=== PATIENT | female | born 1950 | race Caucasian/White ===

== ENCOUNTER 2024-04-05 09:45 | Inpatient (IN) ==
--- NOTE | 2024-03-17 11:59 | PAT Medication Instructions ---
Medication Instructions Date of Service March 17, 2024 Home Medications Fish And Flax Oil 1 cap PO QAM acetaminophen 500 mg tablet (Tylenol Extra Strength) 500 - 1,000 mg PO UD PRN Pain alprazolam 0.5 mg tablet (Xanax) 0.25 mg PO HS PRN Sleep aspirin 81 mg tablet 81 mg PO QAM atorvastatin 10 mg tablet 10 mg PO QDD biotin 5,000 mcg chewable tablet 5,000 mcg PO QAM ohlixbe-oxcebcxkd-xawr tablet 1 tab PO QAM celecoxib 200 mg capsule (Celebrex) 200 mg PO QAM cholecalciferol (vitamin D3) 50 mcg (2,000 unit) capsule (Vitamin D3) 50 mcg PO UD citalopram 10 mg tablet 10 mg PO QAM coenzyme Q10 100 mg capsule (CoQ-10) 100 mg PO QAM doxylamine succinate 25 mg tablet 12.5 - 25 mg PO HS PRN Sleep glucosamine-chondroitin 250 mg-200 mg tablet (Osteo Bi-Flex) 2 tab PO QAM levothyroxine 75 mcg tablet 75 - 150 mcg PO UD lysine 1,000 mg tablet 1,000 mg PO QAM metoprolol succinate 25 mg tablet,extended release 24 hr 25 mg PO QPM multivitamin with iron 1 tab PO QAM tramadol 50 mg tablet 25 mg PO UD PRN Pain vitamin K2 100 mcg capsule 100 mcg PO QAM ASK your surgeon for instructions celecoxib 200 mg capsule (Celebrex) 200 mg PO QAM ASK your prescriber and surgeon aspirin 81 mg tablet 81 mg PO QAM STOP taking 2 weeks before surgery (or as soon as possible if surgery is within 2 weeks) Fish And Flax Oil 1 cap PO QAM coenzyme Q10 100 mg capsule (CoQ-10) 100 mg PO QAM glucosamine-chondroitin 250 mg-200 mg tablet (Osteo Bi-Flex) 2 tab PO QAM lysine 1,000 mg tablet 1,000 mg PO QAM vitamin K2 100 mcg capsule 100 mcg PO QAM DO NOT take the morning of surgery biotin 5,000 mcg chewable tablet 5,000 mcg PO QAM ksvfztt-imqpdmgqs-vvbq tablet 1 tab PO QAM cholecalciferol (vitamin D3) 50 mcg (2,000 unit) capsule (Vitamin D3) 50 mcg PO UD multivitamin with iron 1 tab PO QAM Take morning of surgery With a small sip of water, OTHERWISE NOTHING TO EAT OR DRINK AFTER MIDNIGHT: acetaminophen 500 mg tablet (Tylenol Extra Strength) 500 - 1,000 mg PO UD PRN Pain (if needed) citalopram 10 mg tablet 10 mg PO QAM levothyroxine tramadol 50 mg tablet 25 mg PO UD PRN Pain (if needed) Take evening before surgery acetaminophen 500 mg tablet (Tylenol Extra Strength) 500 - 1,000 mg PO UD PRN Pain (if needed) alprazolam 0.5 mg tablet (Xanax) 0.25 mg PO HS PRN Sleep (if needed) atorvastatin 10 mg tablet 10 mg PO QDD doxylamine succinate 25 mg tablet 12.5 - 25 mg PO HS PRN Sleep (if needed) metoprolol succinate 25 mg tablet,extended release 24 hr 25 mg PO QPM tramadol 50 mg tablet 25 mg PO UD PRN Pain (if needed) Other Notes If you have any questions please call us at [phone] or [phone] or [phone] or [phone]
--- NOTE | 2024-03-22 12:08 | Anesthesiology Consultation ---
Date of Service March 22, 2024 Assessment & Plan (1) Encounter for pre-operative examination: - Infectious disease screening: Per assessment on 03/22/24: No known recent infectious disease contacts or current infectious disease symptoms. - Cardiology visit (03/15/24): "She has history of PVC's, burden 11% on Metoprolol after monitor from 2020. Echo from 09/23/22 shows 64%.. She appears euvolemic on exam.. exercise capacity > 4 METs. No indication for any additional ischemic workup prior to upcoming surgery.. OK from a cardiac standpoint to hold aspirin.. optimized from a cardiac standpoint to proceed with surgery" - Patient acceptable risk for surgery pending surgeon-ordered PCP preop evaluation (Dr. Kenan Funk/[facility], appt 03/25). Chart Review Chart Review: Patient seen in Pre Admission Testing Teaching & Discussion Pre-Anesthesia Teaching/Discussion Notes: Instructed NPO after midnight before surgery,except medications with 15 cc of water. Medication instructions provided according to the PAT guidelines. History Surgery Operation Date: 04/05/24 07:45 Proposed Procedures p L3-L4 Decompression and Fusion Possible L4-L5 - Feliciano Wolf DO Height/Weight Height: 5 ft 6 in Weight: 61 kg Allergies Allergy/AdvReac Type Severity Reaction Status Date / Time No Known Allergies Allergy Verified 03/11/24 10:05 Medications Home Medications Medication Instructions Recorded Confirmed Last Taken Fish And Flax Oil 1 cap PO QAM 03/11/24 03/11/24 Unknown acetaminophen 500 mg tablet 500 - 1,000 mg PO UD PRN Pain 03/11/24 03/11/24 Unknown (Tylenol Extra Strength) alprazolam 0.5 mg tablet (Xanax) 0.25 mg PO HS PRN Sleep 03/11/24 03/11/24 Unknown aspirin 81 mg tablet 81 mg PO QAM 03/11/24 03/11/24 Unknown atorvastatin 10 mg tablet 10 mg PO QDD 03/11/24 03/11/24 Unknown biotin 5,000 mcg chewable tablet 5,000 mcg PO QAM 03/11/24 03/11/24 Unknown rtqiprv-novinybjw-siib tablet 1 tab PO QAM 03/11/24 03/11/24 Unknown celecoxib 200 mg capsule (Celebrex) 200 mg PO QAM 03/11/24 03/11/24 Unknown cholecalciferol (vitamin D3) 50 50 mcg PO UD 03/11/24 03/11/24 Unknown mcg (2,000 unit) capsule (Vitamin D3) citalopram 10 mg tablet 10 mg PO QAM 03/11/24 03/11/24 Unknown coenzyme Q10 100 mg capsule 100 mg PO QAM 03/11/24 03/11/24 Unknown (CoQ-10) doxylamine succinate 25 mg tablet 12.5 - 25 mg PO HS PRN Sleep 03/11/24 03/11/24 Unknown glucosamine-chondroitin 250 mg-200 2 tab PO QAM 03/11/24 03/11/24 Unknown mg tablet (Osteo Bi-Flex) levothyroxine 75 mcg tablet 75 - 150 mcg PO UD 03/11/24 03/11/24 Unknown lysine 1,000 mg tablet 1,000 mg PO QAM 03/11/24 03/11/24 Unknown metoprolol succinate 25 mg 25 mg PO QPM 03/11/24 03/11/24 Unknown tablet,extended release 24 hr multivitamin with iron 1 tab PO QAM 03/11/24 03/11/24 Unknown tramadol 50 mg tablet 25 mg PO UD PRN Pain 03/11/24 03/11/24 Unknown vitamin K2 100 mcg capsule 100 mcg PO QAM 03/11/24 03/11/24 Unknown Past Medical History Medical History Degenerative scoliosis High platelet count PCP monitoring History of COVID-19 (2019) History of fracture of wrist Right (01/2024) > reduced by ortho and placed in splint, conservative management, progress back to normal activities per 02/2024 [facility] [place] Hyperlipidemia Hypothyroid Mild depression Osteopenia PVCs (premature ventricular contractions) Sleep apnea Previous CPAP, has not used x years Spinal stenosis Spondylolisthesis White coat syndrome without diagnosis of hypertension Exercise / Class Metabolic Activity II 4-5 Yardwork/Stairs/Walk up hill (one FS: No CP, no SOB) Past Surgical History Surgical History History of anesthesia reaction Slow to wake History of x2 History of colonoscopy History of laparoscopic cholecystectomy History of postoperative nausea and vomiting History of tonsillectomy and adenoidectomy Past Anesthesia History No Family Hx of Anesthesia Complications and Other (Slow to wake) History of PONV History of PONV Social History Smoking Status: Never smoker Do You Dip or Chew Tobacco: No Alcohol type: beer alcohol intake frequency: a few times a week Hx Substance Use: No substance use type: does not use Review of Systems Patient denies chest pain, shortness of breath, dyspnea on exertion, fever, chills, cough, wheezing, palpitations. Physical Exam Vital Signs BP 99/62 P 69 TEMP 97.8 SP02 98%RA RESP 16 Physical Full cervical extension range of motion. Full TMJ range of motion. TMD 3 finger breaths Mallampati Score III Dentition: missing side, + several crowns, + implant (right lower side) Lungs: clear throughout to auscultation Cardiac: regular rate and rhythm, no murmurs noted Spine: normal Carotid arteries: negative bruit Extremities: no LE edema Lab Results Anesthesia Preop Results Results Anesthesia Widget: WBC 7.84 K/ul (4.8-10.8) 03/22/24 Hgb 13.5 g/dl (12.0-16.0) 03/22/24 Hct 40.0 % (37.0-47.0) 03/22/24 Plt 446 K/uL (130-400) H 03/22/24 Na 138 mmol/L (136-145) 03/22/24 K 4.1 mmol/L (3.5-5.1) 03/22/24 Cl 105 mmol/L (98-107) 03/22/24 CO2 26 mmol/L (21-32) 03/22/24 BUN 17 mg/dl (6-23) 03/22/24 Creat 0.87 mg/dl (0.6-1.2) 03/22/24 Glucose Level 81 mg/dl (70-99(Fasting)) 03/22/24 PT 10.3 Seconds (9.0-12.0) 03/22/24 PTT 26 Seconds (21-31) 03/22/24 INR 0.9 (0.9-1.1) 03/22/24 Urine Color Yellow 03/22/24 Urine Appearance Clear (Clear) 03/22/24 Urine pH 6.5 (4.5-7.5) 03/22/24 Urine Specific [place] 1.007 (1.000-1.030) 03/22/24 Urine Protein Negative (Negative) 03/22/24 Urine Glucose (UA) Negative (Negative) 03/22/24 Urine Ketones Negative (Negative) 03/22/24 Urine Blood Negative (Negative) 03/22/24 Urine Nitrite Negative (Negative) 03/22/24 Urine Bilirubin Negative (Negative) 03/22/24 Urine Urobilinogen Negative (Negative) 03/22/24 Urine Leukocyte Esterase Negative (Negative) 03/22/24 Blood Type A Positive 03/22/24 Antibody Screen NEGATIVE 03/22/24 Testing Electrocardiogram Date: 03/15/24 SR at 71bpm. NS TWA. Chest X-Ray Date: 03/22/24 FINDINGS: No lines and tubes are seen. The cardiomediastinal silhouette is normal. The lungs are clear. No evidence of pleural effusion or pneumothorax. IMPRESSION: No acute chest disease. Echocardiogram Date: 09/23/22 LVEF 64%. No regional wall motion abnormality. Trace physiologic MR/TR/MD. Stress Test Date: 10/03/22 86% MPHR. No ischemic ST changes. PVC less frequent with stress. PVCs mostly at rest and recovery (ventricular bigeminy at times). 8.6 METS.
[2024-04-05] MEDS ORDERED: ONDANSETRON INJ 2 MG/ML 2 ML VIAL ONE (10:14)
[2024-04-05] MEDS ORDERED: HYDROmorphone INJ 2 MG/ML SYR/VIAL ONE (10:14)
[2024-04-05] MEDS ORDERED: PROPOFOL IV EMULSION 10 MG/ML 20 ML VIAL IV ONE (10:14)
[2024-04-05] MEDS ORDERED: ePHEDrine sulfate 50 MG/ML AMP ONE (10:14)
[2024-04-05] MEDS ORDERED: ROCURONIUM BROMIDE 10 MG/ML 5 ML VIAL IV ONE (10:14)
[2024-04-05] MEDS ORDERED: DEXAMETHASONE SOD INJ 4 MG/ML VIAL ONE (10:14)
[2024-04-05] MEDS ORDERED: PHENYLEPHRINE HCL 10 MG/ML VIAL ONE (10:14)
[2024-04-05] MEDS ORDERED: MIDAZOLAM HCL 1 MG/ML 2ML VIAL ONE (10:14)
[2024-04-05] MEDS ORDERED: LIDOCAINE 2% 2 ML VIAL/AMP(20MG/ML) INFIL ONE (10:14)
[2024-04-05] MEDS: LR 15ML/HR IV SCH (10:38)
[2024-04-05] MEDS: LR 60ML/HR IV SCH (10:39)
[2024-04-05] MEDS: CeleBREX 200 MG CAP PO SCH (10:39)
[2024-04-05] MEDS: ACETAMINOPHEN 500 MG TAB PO SCH (10:39)
[2024-04-05] MEDS: GABAPENTIN 300 MG CAP PO SCH (10:39)
--- NOTE | 2024-04-05 11:14 | History & Physical Bridge Note ---
Date of Service April 05, 2024 History & Physical Bridge Note I have examined the patient, reviewed the History & Physical and in the interval since the performance of the History & Physical I have noted the following changes of clinical significance: no changes noted
--- NOTE | 2024-04-05 11:16 | History & Physical Report ---
Date of Service April 05, 2024 Assessment & Plan (1) Neurogenic claudication due to lumbar spinal stenosis: Plan: L3-L4 decompression and fusion, possible L4-L5 History of Present Illness Chief Complaint: Back and bilateral leg pain Primary Care Provider: Kenan Funk 73-year-old female who presents with chronic persistent back and leg pain after failing course of nonoperative care is here for surgical intervention. Allergies Allergy/AdvReac Type Severity Reaction Status Date / Time No Known Allergies Allergy Verified 04/05/24 10:25 Home Medications Medication Instructions Recorded Confirmed Type Fish And Flax Oil 1 cap PO QAM 03/11/24 04/05/24 History acetaminophen 500 mg tablet 500 - 1,000 mg PO UD PRN Pain 03/11/24 04/05/24 History (Tylenol Extra Strength) alprazolam 0.5 mg tablet (Xanax) 0.25 mg PO HS PRN Sleep 03/11/24 04/05/24 History aspirin 81 mg tablet 81 mg PO QAM 03/11/24 04/05/24 History atorvastatin 10 mg tablet 10 mg PO QDD 03/11/24 04/05/24 History biotin 5,000 mcg chewable tablet 5,000 mcg PO QAM 03/11/24 04/05/24 History xnnnnjl-uzywvojyb-vgtd tablet 1 tab PO QAM 03/11/24 04/05/24 History celecoxib 200 mg capsule (Celebrex) 200 mg PO QAM 03/11/24 04/05/24 History cholecalciferol (vitamin D3) 50 50 mcg PO UD 03/11/24 04/05/24 History mcg (2,000 unit) capsule (Vitamin D3) citalopram 10 mg tablet (Celexa) 10 mg PO QAM 03/11/24 04/05/24 History coenzyme Q10 100 mg capsule 100 mg PO QAM 03/11/24 04/05/24 History (CoQ-10) doxylamine succinate 25 mg tablet 12.5 - 25 mg PO HS PRN Sleep 03/11/24 04/05/24 History (Sleep Aid (doxylamine)) glucosamine-chondroitin 250 mg-200 2 tab PO QAM 03/11/24 04/05/24 History mg tablet (Osteo Bi-Flex) levothyroxine 75 mcg tablet 75 - 150 mcg PO UD 03/11/24 04/05/24 History lysine 1,000 mg tablet 1,000 mg PO QAM 03/11/24 04/05/24 History metoprolol succinate 25 mg 25 mg PO QPM 03/11/24 04/05/24 History tablet,extended release 24 hr multivitamin with iron 1 tab PO QAM 03/11/24 04/05/24 History tramadol 50 mg tablet 25 mg PO UD PRN Pain 03/11/24 04/05/24 History vitamin K2 100 mcg capsule 100 mcg PO QAM 03/11/24 04/05/24 History Past Med/Surg History Problem List (Updated 04/05/24 @ 11:16 by Feliciano Wolf, ) Neurogenic claudication due to lumbar spinal stenosis Encounter for pre-operative examination Medical History Degenerative scoliosis High platelet count PCP monitoring History of COVID-19 (2019) History of fracture of wrist Right (01/2024) > reduced by ortho and placed in splint, conservative management, progress back to normal activities per 02/2024 [facility] ortho visit Hyperlipidemia Hypothyroid Mild depression Osteopenia PVCs (premature ventricular contractions) Sleep apnea Previous CPAP, has not used x years Spinal stenosis Spondylolisthesis White coat syndrome without diagnosis of hypertension Surgical History History of anesthesia reaction Slow to wake History of x2 History of colonoscopy History of laparoscopic cholecystectomy History of postoperative nausea and vomiting History of tonsillectomy and adenoidectomy Social History Smoking Status: Never smoker Do You Dip or Chew Tobacco: No; Hx Substance Use: No Preferred Language: Lithuanian Communication Ability: Effective [employer]techn[employer] Teacher Required: No Beliefs That Will Affect Care: None Current Living Situation: Spouse Feels Safe at Home: Yes Assistive Devices: Glasses and Hearing Aid - Bilateral Physical Exam Physical Exam: Patient is alert and oriented Heart regular in rhythm lungs clear Results & Data Results & Data Vital Signs (Past 12 Hours) Vital Signs Temp Pulse Resp BP Pulse Ox O2 Del Method 04/05/24 10:25 36.8 C 64 18 128/77 98 Room Air
[2024-04-05] MEDS ORDERED: fentaNYL citrate PF 100 MCG/2 ML VIAL IV PRN (11:18)
[2024-04-05] MEDS ORDERED: ONDANSETRON INJ 2 MG/ML 2 ML VIAL IV PRN ×2 (11:18→15:15)
[2024-04-05] MEDS ORDERED: ATROPINE SULFATE 0.1 MG/ML 10ML SYR IV PRN (11:18)
[2024-04-05] MEDS ORDERED: ePHEDrine sulfate 50 MG/ML AMP IV PRN (11:18)
[2024-04-05] MEDS: ceFAZolin 2000MG 2,000 MG/15 ML SYR IV SCH (11:36)
[2024-04-05] MEDS ORDERED: SUGAMMADEX SODIUM 200 MG/2 ML VIAL IV ONE (11:58)
[2024-04-05] MEDS: BUPIVACAINE/EPINEPHRINE 0.25% 1:200,000 30 ML VIAL ONE (12:05)
[2024-04-05] MEDS: FLOSEAL HEMOSTATIC MATRIX 10ML TOP ONE (13:45)
[2024-04-05] MEDS: ceFAZolin 330 MG/ML 1 GM VIAL ONE (13:51)
--- NOTE | 2024-04-05 14:16 | Operative Report ---
Post Operative Report Pre & Post Diagnosis Operation Date: 04/05/24 11:25 Pre-Op Diagnosis: Neurogenic claudication due to lumbar spinal stenosis Post-Op Diagnosis: Neurogenic claudication due to lumbar spinal stenosis I identified the patient and participated in the time-out.: Yes Procedure Operation Date: 04/05/24 11:25 Actual Procedures #1 lumbar decompression with bilateral medial facetectomies and foraminotomies L2-L3, L3-L4 and L4-L5. #2 posterior spinal fusion L3 L5. #3 placement posterior instrumentation L3 L5. #4 interbody fusion L3-L4 L4-L5. #5 placement of Spira 9 x 22 mm at L3-L4 and 11 x 26 mm at L4-5. #6 placement locally harvested morselized autograft in the posterior gutters per #7 placement infuse collagen sponge combined with Koros bone graft in the posterior lateral gutters and os design interbody space. #8 placement of versa wrap on the exposed dura. Surgeon Feliciano Wolf, Creative Engagement Director Yris Talamantes Estimated Blood Loss 150 Findings Consistent with Post-Op Diagnosis Specimens None Indications This is a 73-year-old female who presents above-mentioned diagnosis after failing course of nonoperative care is here for surgical invention. Description of Procedure Patient was met with identified informed consent obtained. Patient was then taken to the operative suite underwent and patient placed in a prone position on the Noel table atop the Byron frame. All bony promises well-padded eyes inspected to ensure no external pressure placed upon them. This point the lumbar spine is prepped and draped in normal sterile fashion. Sharp dissection with the assistance of Bovie cautery was performed down to and exposing the lamina transverse processes of L3-L4-L5 bilaterally. From a caudal cephalad fashion complete laminectomy of L4 was performed including bilateral medial facetectomy foraminotomies addressing severe lateral recess and foraminal stenosis. This was followed by complete laminectomy of L3 with bilateral medial facetectomies and foraminotomies addressing severe stenosis and lastly partial laminectomy of L2 with bilateral medial facetectomies to address all subarticular stenosis. Pedicle screws then placed at L3 L4-5 bilaterally with assistance of fluoroscopy in the process elizabeth placed. By way of transforaminal approach on the left a complete discectomy of L4-L5 was performed endplates guarded to subcortical bleeding bone and 11 x 26 mm Spira cage filled os design tapped in position. Then proceeded to L3-L4 and by way of transforaminal approach on the right complete discectomy performed endplates guarded to subcortical bleeding bone and a 9 x 22 mm spiral cage filled with os design tapped into position. Appropriate size rods were then placed and locked into position bilaterally. The transverse processes of L3 L4-5 burred to subcortical bleeding bone. Infuse collagen sponge combined with Koros and local autograft placed in the posterior lateral gutters. Versa wrap placed on the exposed dura. 15 round STEPHANIE drain inserted. The incision was then closed with 1 Vicryl to fascia 2-0 Vicryl subcutaneously and 4 Monocryl for final skin closure. Steri- Strips sterile dressing placed. Patient waken taken the PACU stable condition. Please note spinal cord monitoring was utilized at the procedure no changes noted. Yris Talamantes was present out the entire procedure and all the patient positioning complex portions of the procedure and final skin closure. Im ordering 20 grams of Triple Weeping Water Collagen Powder ([employer] [id number]) to treat an incision wound that was caused by a spine procedure. The incision is approximately 2 cm(W) x 4 cm(L) into the joint (D) in size and is a full thickness wound. Triple Weeping Water collagen comes in 1 gram packets so 20 packets were ordered. Given the size of the wound, with light to moderate exudate I chose to order a 20 day supply. The patient will be provided instructions for proper application of the collagen wound kit. The patient will be asked to apply the collagen powder daily and then cover it with sterile dressings dispensed. Collagen was selected as I expect the collagen to attract monocytes and fibroblasts, act as a sacrificial substrate for MMPs, and ultimately proved a matrix for tissue and vessel growth. The collagen will act as a primary dress ing in this scenario. It is medically necessary for proper healing of these wounds to improve bioavailability and contact with each wound surface, this is also to help prevent infection of wounds and promote healing ultimately leading to a better healing outcome and limit the risk of infection. I attest to the content of the Intraoperative Record and any orders documented therein. Any exceptions are noted below.
--- NOTE | 2024-04-05 14:41 | Fluoroscopy Report ---
INTRAOPERATIVE RADIOGRAPHS CLINICAL HISTORY: Lumbar spinal fusion surgery. Fluoro time: 31 seconds Ka,r: 16.70 mGy FINDINGS: 2 spot fluoroscopic views of the lumbar spine are presented. There has been discectomy at L 3-L4 and L4-L5 with laminectomy and posterior fusion at L3-L5. Interpedicular screws are present at a ll levels. The orthopedic hardware appears intact. There is minimal anterolisthesis at L3-L4. IMPRESSION: Intraoperative images from lumbar spinal fusion surgery as above. Electronically signed by: Sarabjit Paz M.D. 04/05/2024 2:40 PM
--- NOTE | 2024-04-05 14:48 | Anesthesiology Progress Note ---
Date of Service April 05, 2024 Anesthesia Post Procedure Vital Signs Vital Signs: Temp Pulse Pulse Resp BP BP Pulse Ox 04/05/24 14:40 81 14 116/64 98 04/05/24 14:30 78 14 123/69 100 04/05/24 14:20 75 12 111/72 100 04/05/24 14:14 36 C L 79 16 117/68 99 04/05/24 10:25 36.8 C 64 18 128/77 98 O2 Del Method O2 Flow Rate 04/05/24 14:40 Room Air 04/05/24 14:30 Oxymask 2 04/05/24 14:20 Oxymask 4 04/05/24 14:14 Oxymask 6 04/05/24 10:25 Room Air Transfer of Care Handoff Completed per policy Notes Mental Status: alert / awake / arousable and participated in evaluation Patient Amnestic to Procedure: Yes Nausea / Vomiting: adequately controlled Pain: adequately controlled Airway Patency, RR, SpO2: stable & adequate BP & HR: stable & adequate Hydration State: stable & adequate Anesthetic Complications: no major complications apparent and Pt Satisfied with anesthetic care
[2024-04-05] MEDS ORDERED: NALOXONE HCL 0.4 MG/1 ML VIAL/CARP IV PRN (15:15)
[2024-04-05] MEDS ORDERED: LORazepam 0.5 MG TAB PO PRN (15:15)
[2024-04-05] MEDS ORDERED: PROMETHAZINE 12.5 MG/50.5 ML BAG IV PRN (15:15)
[2024-04-05] MEDS ORDERED: ALUMINUM/MAGNESIUM SUSP 30 ML UDC PO PRN (15:15)
[2024-04-05] MEDS ORDERED: FAMOTIDINE 20 MG TAB PO PRN (15:15)
[2024-04-05] MEDS ORDERED: ALPRAZolam 0.25 MG TABLET PO PRN (15:15)
[2024-04-05] MEDS ORDERED: ONDANSETRON 4 MG OD TAB PO PRN (15:15)
[2024-04-05] MEDS ORDERED: diphenhydrAMINE Capsule 25 MG CAP PO PRN (15:15)
[2024-04-05] MEDS ORDERED: MAGNESIUM HYDROXIDE SUSP 30 ML UDC PO PRN (15:15)
[2024-04-05] MEDS ORDERED: LORazepam 0.5 MG in SYRINGE 0.25 ML IV PRN (15:15)
[2024-04-05] MEDS ORDERED: DO NOT ADMINISTER FLU VACCINE PRN (15:15)
[2024-04-05] MEDS ORDERED: METOCLOPRAMIDE HCL INJ 5 MG/ML 2 ML VIAL IV PRN (15:15)
[2024-04-05] MEDS ORDERED: SOD PHOSPHATE/SOD BIPHOSPHATE ENEMA 132 ML BTL PR PRN (15:15)
[2024-04-05] MEDS ORDERED: DO NOT ADMINISTER PNEUMOCOCCAL VACCINE PRN (15:15)
[2024-04-05] MEDS ORDERED: hydrOXYzine HCl 25 MG TAB PO PRN (15:15)
[2024-04-05] MEDS ORDERED: HYDROmorphone INJ 0.5 MG/0.5 ML SYR IV PRN (15:15)
[2024-04-05] MEDS ORDERED: ACETAMINOPHEN 1,000 MG/100 ML VIAL IV PRN (15:15)
[2024-04-05] MEDS: LACTATED RINGER'S 1,000 ML IV SCH (15:25)
--- NOTE | 2024-04-05 15:44 | Hospitalist Consultation ---
Date of Consultation April 05, 2024 Assessment & Plan (1) Neurogenic claudication due to lumbar spinal stenosis: (2) S/P lumbar spine operation: Plan Kristen Metz is a 73y/o F with PMHx of HTN, hyperlipidemia, hypothyroidism, depression, osteopenia, history of PVCs, DAWOOD on CPAP and other problems listed below who was referred to our [facility]ist Team for post-operative medical management after undergoing L3-L5 decompression and fusion performed by Dr. Wolf on 04/05/24. Neurogenic Claudication 2/2 Lumbar Spinal Stenosis S/P Lumbar Spine Operation POD#0 s/p L3-L5 decompression and fusion with Dr. Wolf. EBL: 150mL & Pre-Op Hgb: 13.5 [03/22/24] Per ortho for pain control, wound care, anticoagulation and activities. Continue incentive spirometry, PT/OT when appropriate as per ortho team. Monitor H/H for acute blood loss anemia and transfuse blood products PRN. HTN: BP has been stable post-operatively. Can continue metoprolol succinate w/ hold parameters, monitor BP. Hyperlipidemia: Continue ASA and atorvastatin. Other Chronic Medical Conditions: Depression, hypothyroidism --> Can continue home meds for these specific conditions. DVT Prophylaxis: SCDs/TEDs as per primary care team. Code Status: FULL CODE PCP: Kenan Funk MD Disposition: Admitted in Med/Surg currently - discharge planning as per primary care team. Thank you for this consultation. We will follow the patient with you during their hospital stay. You can reach a member of the [facility] Team 03/03 via [employer]. Patient seen in collaboration with Dr. Carey. Please see addendum. I spent a total of 45 minutes coordinating, documenting, and providing care for this patient excluding time spent in the performance of separately billed services. This included personally reviewing all current laboratories and imaging studies, medical reconciliation, outpatient chart review and discussion with specialists. This chart was completed in part utilizing Speech Voice Recognition Software. Grammatical errors, random word insertions, pronoun errors, and incomplete sentences are an occasional consequence of this system due to software limitations, ambient noise, and hardware issues. Any formal questions or concerns about the content, text, or information contained within the body of this dictation should be directly addressed to the provider for clarification. Supervising Physician Co-Signing Physician Notes Patient was seen and is status post lumbar spinal surgery, POD 0, For medical management. Patient lying in bed, on RA, reports operative site pain under control, reports improvement in RLE radicular pain. Patient denies any recent febrile illness. Labs in AM, pain management/bowel regimen. DVT prophylaxis and PT OT per primary team. Watch out for acute blood loss anemia. Continue home medications as able. On exam: GENERAL: Alert and oriented x3. NAD, on RA HEENT: No pallor, no icterus. Pupils equal, round and reactive to light. Oral mucosa moist. NECK: No JVD, no neck masses. HEART: S1 and S2 heard. Regular rate and rhythm. No murmur, no gallop. RESPIRATORY SYSTEM: Normal AP diameter. No accessory muscle use. No wheezing, no crackles. ABDOMEN: Soft, bowel sounds present, nontender, no distention. CENTRAL NERVOUS SYSTEM: No facial droop. Speech is clear. Obeys simple commands. Moves extremities. EXTREMITIES: No edema, no erythema seen. Distal NV status wnl. Lower back w/ dressing c/d/i. STEPHANIE drain w/ moderate serosanguineous outs. I have seen and examined the patient and have discussed the case with the provider above. I agree with the assessment and plan as stated. History of Present Illness Reason for Consultation: Post-Operative Medical Management Requesting Physician: Feliciano Wolf DO Attending Physician: Feliciano Wolf DO History of Present Illness Kristen Metz is a 73y/o F with PMHx of HTN, hyperlipidemia, hypothyroidism, depression, osteopenia, history of PVCs, DAWOOD on CPAP and other problems listed below who was referred to our [facility] Team for post-operative medical management after undergoing L3-L5 decompression and fusion performed by Dr. Wolf on 04/05. History obtained from patient and associated chart review. Patient seen at bedside in room W355-2. Her is at bedside. Patient reports minor discomfort in her lower back region, but otherwise her pain is under control. A Tineo catheter is in place and STEPHANIE drain x 1 is intact. She has been tolerating sips of water without issue. No chest pain or SOB. She has not been out of bed yet. Has no further questions or concerns at this time. Allergies Allergy/AdvReac Type Severity Reaction Status Date / Time No Known Allergies Allergy Verified 04/05/24 10:25 Home Medications Medication Instructions Recorded Confirmed Type Fish And Flax Oil 1 cap PO QAM 03/11/24 04/05/24 History acetaminophen 500 mg tablet 500 - 1,000 mg PO UD PRN Pain 03/11/24 04/05/24 History (Tylenol Extra Strength) alprazolam 0.5 mg tablet (Xanax) 0.25 mg PO HS PRN Sleep 03/11/24 04/05/24 History aspirin 81 mg tablet 81 mg PO QAM 03/11/24 04/05/24 History atorvastatin 10 mg tablet 10 mg PO QDD 03/11/24 04/05/24 History biotin 5,000 mcg chewable tablet 5,000 mcg PO QAM 03/11/24 04/05/24 History jbzxrlx-[id number]-qijt tablet 1 tab PO QAM 03/11/24 04/05/24 History celecoxib 200 mg capsule (Celebrex) 200 mg PO QAM 03/11/24 04/05/24 History cholecalciferol (vitamin D3) 50 50 mcg PO UD 03/11/24 04/05/24 History mcg (2,000 unit) capsule (Vitamin D3) citalopram 10 mg tablet (Celexa) 10 mg PO QAM 03/11/24 04/05/24 History coenzyme Q10 100 mg capsule 100 mg PO QAM 03/11/24 04/05/24 History (CoQ-10) doxylamine succinate 25 mg tablet 12.5 - 25 mg PO HS PRN Sleep 03/11/24 04/05/24 History (Sleep Aid (doxylamine)) glucosamine-chondroitin 250 mg-200 2 tab PO QAM 03/11/24 04/05/24 History mg tablet (Osteo Bi-Flex) levothyroxine 75 mcg tablet 75 - 150 mcg PO UD 03/11/24 04/05/24 History lysine 1,000 mg tablet 1,000 mg PO QAM 03/11/24 04/05/24 History metoprolol succinate 25 mg 25 mg PO QPM 03/11/24 04/05/24 History tablet,extended release 24 hr multivitamin with iron 1 tab PO QAM 03/11/24 04/05/24 History tramadol 50 mg tablet 25 mg PO UD PRN Pain 03/11/24 04/05/24 History vitamin K2 100 mcg capsule 100 mcg PO QAM 03/11/24 04/05/24 History Patient History Medical History History of COVID-19 (2019) Mild depression History of fracture of wrist Right (01/2024) > reduced by ortho and placed in splint, conservative management, progress back to normal activities per 02/2024 [facility] ortho visit Osteopenia Spinal stenosis Degenerative scoliosis Spondylolisthesis Sleep apnea Previous CPAP, has not used x years High platelet count PCP monitoring Hyperlipidemia Hypothyroid PVCs (premature ventricular contractions) White coat syndrome without diagnosis of hypertension Surgical History History of colonoscopy History of postoperative nausea and vomiting History of anesthesia reaction Slow to wake History of laparoscopic cholecystectomy History of x2 History of tonsillectomy and adenoidectomy Social History Smoking Status: Never smoker Do You Dip or Chew Tobacco: No; Hx Substance Use: No Preferred Language: French Communication Ability: Effective Scan Coordinator Required: No Beliefs That Will Affect Care: None Current Living Situation: Spouse Feels Safe at Home: Yes Assistive Devices: Glasses and Hearing Aid - Bilateral Review of Systems Review of Systems: At least ten systems reviewed and negative, except as noted in the HPI. Physical Exam Physical Exam: General: WD/WN, vitals as above, NAD, laying down in bed, pleasant, conversing appropriately. A+Ox3, euthymic affect. HEENT: Normocephalic, atraumatic. PERRL, conjunctivae normal, anicteric sclerae, oropharynx normal. Respiratory: Normal respiratory effort, lungs clear to auscultation, no wheeze, rales, rhonchi. No accessory muscle use. Cardiovascular: Regular rate, rhythm, no murmur, normal peripheral pulses, no BLE edema. Vessels: No JVD. Abdomen/GI: Normal bowel sounds, soft, nontender, no hepatosplenomegaly. Extremities/Musculoskeletal: No cyanosis or clubbing, surgical dressing dry and intact, STEPHANIE drain x 1 producing sanguineous output. Neurologic: EOMI, no focal deficits, CN's II-XI not formally tested but appear grossly intact bilaterally. Skin: No rashes, normal color, warm/dry. Results & Data Results & Data Vital Signs (Past 12 Hours) Vital Signs Temp Pulse Pulse Pulse Resp BP BP 04/05/24 15:28 36.4 C L 76 17 114/70 04/05/24 15:10 36.4 C L 77 17 120/73 04/05/24 14:50 36.3 C L 77 16 121/58 L 04/05/24 14:40 81 14 116/64 04/05/24 14:30 78 14 123/69 04/05/24 14:20 75 12 111/72 04/05/24 14:14 36 C L 79 16 117/68 04/05/24 10:25 36.8 C 64 18 128/77 Pulse Ox O2 Del Method O2 Flow Rate 04/05/24 15:28 96 Room Air 04/05/24 15:10 98 Room Air 04/05/24 14:50 98 Room Air 04/05/24 14:40 98 Room Air 04/05/24 14:30 100 Oxymask 2 04/05/24 14:20 100 Oxymask 4 04/05/24 14:14 99 Oxymask 6 04/05/24 10:25 98 Room Air Diagnostic Findings Lumbar Spine X-Ray 04/05/24 11:25 INTRAOPERATIVE RADIOGRAPHS CLINICAL HISTORY: Lumbar spinal fusion surgery. Fluoro time: 31 seconds Ka,r: 16.70 mGy FINDINGS: 2 spot fluoroscopic views of the lumbar spine are presented. There has been discectomy at L3-L4 and L4-L5 with laminectomy and posterior fusion at L3- L5. Interpedicular screws are present at all levels. The orthopedic hardware appears intact. There is minimal anterolisthesis at L3-L4. IMPRESSION: Intraoperative images from lumbar spinal fusion surgery as above. Electronically signed by: Sarabjit Paz M.D. 04/05/2024 2:40 PM Medications Administered Acetaminophen (Acetaminophen 500 Mg Tab) 1,000 mg PO PREOP ANGEL Stop: 04/05/24 18:00 Last Admin: 04/05/24 10:39 Dose: 1,000 mg Documented By: ANKUR Celecoxib (Celebrex 200 Mg Cap) 200 mg PO PREOP ANGEL Stop: 04/05/24 18:00 Last Admin: 04/05/24 10:39 Dose: 200 mg Documented By: ANKUR Gabapentin (Gabapentin 300 Mg Cap) 300 mg PO PREOP ANGEL Stop: 04/05/24 18:00 Last Admin: 04/05/24 10:39 Dose: 300 mg Documented By: ANKUR Lactated Ringer's (Lr) 1,000 mls @ 60 mls/hr IV .[id number] ANGEL Stop: 04/05/24 22:39 Last Admin: 04/05/24 10:39 Dose: Not Given Documented By: ANKUR Cefazolin Sodium (Ancef 2000mg) 2,000 mg in 15 mls @ 3.75 mls/min IV PREOP ANGEL; Protocol Stop: 04/05/24 18:00 Last Admin: 04/05/24 11:36 Dose: 3.75 mls/min Documented By: AIME Lactated Ringer's (Lr) 1,000 mls @ 15 mls/hr IV .Q24H ANGEL Stop: 04/06/24 05:59 Last Infusion: 04/05/24 11:34 Dose: Infused Documented By: Admin: 04/05/24 10:38 Dose: 15 mls/hr Documented By: ANKUR Lactated Ringer's (Lr) 1,000 mls @ 100 mls/hr IV .Q10H ANGEL Stop: 05/05/24 15:14 Last Admin: 04/05/24 15:25 Dose: 100 mls/hr Documented By: JIHAN Discontinued Medications Bupivacaine HCl/Epinephrine Bitart (Bupivacaine/Epinephrine 0.25% 1:200,000 30 Ml Vial) Confirm Administered Dose 30 ml .ROUTE .STK-MED ONE Stop: 04/05/24 11:33 Last Admin: 04/05/24 12:05 Dose: 20 ml Documented By: ANTELMO Cefazolin Sodium (Cefazolin 330 Mg/Ml 1 Gm Vial) Confirm Administered Dose 990 mg .ROUTE .STK-MED ONE Stop: 04/05/24 11:33 Last Admin: 04/05/24 13:51 Dose: 990 mg Documented By: ANTELMO Miscellaneous ( Floseal Hemostatic Matrix 10ml) 20 ml TOP ONCE ONE Stop: 04/05/24 12:29 Last Admin: 04/05/24 13:45 Dose: 17 ml Documented By: ANTELMO
[2024-04-05] MEDS: ATORVASTATIN 10 MG TAB PO SCH (17:15)
[2024-04-05] MEDS: ceFAZolin 1000MG 1,000 MG/7.5 ML SYR IV SCH (20:20)
[2024-04-05] MEDS: DOCUSATE SODIUM/SENNA 50/8.6MG TAB PO SCH (20:21)
[2024-04-05] MEDS: METOPROLOL SUCC 25MG EXT REL TAB PO SCH (20:21)
[2024-04-05] MEDS: traMADol HCL 50 MG TABLET PO PRN (20:23)
[2024-04-06] MEDS: oxyCODONE HCL IR 5 MG TAB (IMMEDIATE RELEASE) PO PRN (02:52)
[2024-04-06] MEDS: HYDROmorphone INJ 1 MG/ML SYRINGE IV PRN (05:49)
[2024-04-06] MEDS: LEVOTHYROXINE SODIUM 75 MCG TABLET PO SCH (05:50)
[2024-04-06] MEDS: POLYETHYLENE (MIRALAX) 17 GM PACK PO SCH (05:50)
[2024-04-06 06:13] LABS: Basophils # (auto) 0.03 K/uL (0.00-0.20); Basophils % (auto) 0.2 %; Eosinophils # (auto) 0.01 K/uL (0.00-0.50); Eosinophils % (auto) 0.1 %; Hematocrit (blood only) 34.2 % (37.0-47.0); Hemoglobin 11.3 g/dl (12.0-16.0); Immature Granulocytes # (auto) 0.04 K/uL (0.01-0.20); Immature Granulocytes % (auto) 0.3 %; Lymphocytes # (auto) 2.07 K/uL (1.20-3.40); Lymphocytes % (auto) 16.7 %; Mean Corpuscular Hemoglobin 27.6 pg (25.0-34.0); Mean Corpuscular Volume 83.4 fL (80.0-100.0); Mean Platelet Volume 9.2 fL (9.4-12.4); Monocytes # (auto) 1.09 K/uL (0.11-0.59); Monocytes % (auto) 8.8 %; Neutrophils # (auto) 9.14 K/uL (1.40-6.50); Neutrophils % (auto) 73.9 %; Platelet Count 355 K/uL (130-400); RDW Standard Deviation 39.5 fL (36.4-46.3); White Blood Count 12.38 K/ul (4.8-10.8)
[2024-04-06 06:53] LABS: BUN Creatinine Ratio 19.4 (10-20); Calcium 8.6 mg/dl (8.6-10.3); Creatinine Clr Calc Pharmacy 66.1 ml/min; Est GFR (Non-African American) 83.7 ml/min; Magnesium 1.9 mg/dl (1.7-2.4); Phosphorus 4.1 mg/dl (2.5-4.9); Potassium 4.2 mmol/L (3.5-5.1)
[2024-04-06] MEDS ORDERED: NON-FORMULARY MEDICATION (Coenzyme Q10 [Coq-10] 100 mg Capsule) PO SCH (09:00)
[2024-04-06] MEDS ORDERED: NON-FORMULARY MEDICATION (Lysine 1,000 mg Tablet) PO SCH (09:00)
[2024-04-06] MEDS ORDERED: NON-FORMULARY MEDICATION (Biotin 5,000 mcg Tablet,Chewable) PO SCH (09:00)
[2024-04-06] MEDS: ACETAMINOPHEN 500 MG TAB PO PRN (09:10)
[2024-04-06] MEDS: dexAMETHasone 6 MG in SYRINGE 0 ML IV SCH (09:10)
[2024-04-06] MEDS: MULTIVITAMIN TAB PO SCH (09:34)
[2024-04-06] MEDS: CHOLECALCIFEROL 25 MCG (1000 UNITS) TAB PO SCH (09:34)
[2024-04-06] MEDS: ASPIRIN 81 MG ECTAB PO SCH (09:34)
[2024-04-06] MEDS: CITALOPRAM 20 MG TAB PO SCH (09:35)
--- NOTE | 2024-04-06 10:14 | Orthopedic Progress Note ---
Date of Service April 06, 2024 Assessment & Plan (1) Neurogenic claudication due to lumbar spinal stenosis: Plan: At this time initiate physical therapy monitor STEPHANIE output likely discharge home next few days. Admission and Anticipated Discharge Date Admission Date: April 05, 2024 Subjective Patient's back pain is controlled leg pain improved Physical Exam Physical Exam: Patient is up and ambulating. Discussed when to testing. Appears comfortable. Results & Data Vital Signs (Past 12 Hours) Vital Signs Temp Pulse Resp BP Pulse Ox O2 Del Method 04/06/24 07:15 36.6 C 71 16 98/58 L 94 Room Air 04/06/24 04:00 36.7 C 64 15 103/58 L 96 Room Air 04/06/24 00:30 36.9 C 77 16 112/73 95 Room Air
[2024-04-06] MEDS ORDERED: LORazepam 2 MG/1 ML VIAL IV PRN (12:52)
--- NOTE | 2024-04-06 14:02 | Hospitalist Progress Note ---
<Statement entered by Jorge Chandler, - 04/06/24 14:44> I have seen and examined the patient and have discussed the case with the provider above. I have reviewed the advanced practitioner's documentation, and I agree with, and take responsibility for that plan of care. 7 minutes spent on evaluation patient bedside in coordination of care Plan of care as outlined below Date of Service April 06, 2024 Assessment & Plan (1) Neurogenic claudication due to lumbar spinal stenosis: (2) S/P lumbar spine operation: Plan Kristen Metz is a 73y/o F with PMHx of HTN, hyperlipidemia, hypothyroidism, depression, osteopenia, history of PVCs, DAWOOD on CPAP and other problems listed below who was referred to our [facility] Team for post-operative medical management after undergoing L3-L5 decompression and fusion performed by Dr. Wolf on 04/05/24. Neurogenic Claudication 2/2 Lumbar Spinal Stenosis S/P Lumbar Spine Operation POD#1 s/p L3-L5 decompression and fusion with Dr. Wolf. EBL: 150mL & Pre-Op Hgb: 13.5 [03/22/24] Per ortho for pain control, wound care, anticoagulation and activities. Continue incentive spirometry, PT/OT when appropriate as per ortho team. Monitor H/H for acute blood loss anemia and transfuse blood products PRN. Acute blood loss anemia, post operative, expected surgical blood loss/dilutional hgb 13.5 pre op, pod #1 was 11.3 follow cbc HTN: BP has been stable post-operatively. Can continue metoprolol succinate w/ hold parameters, monitor BP. Hyperlipidemia: Continue ASA and atorvastatin. Other Chronic Medical Conditions: Depression, hypothyroidism --> Can continue home meds for these specific conditions. DVT Prophylaxis: SCDs/TEDs as per primary care team. Code Status: FULL CODE PCP: Kenan Funk MD Disposition: Admitted in Med/Surg currently - discharge planning as per primary care team. Thank you for this consultation. We will follow the patient with you during their hospital stay. You can reach a member of the [facility]ist Team 03/03 via [employer]. I spent a total of 47 minutes coordinating, documenting, and providing care for this patient excluding time spent in the performance of separately billed services. This included personally reviewing all current laboratories and imag ing studies, medical reconciliation, outpatient chart review and discussion with specialists. Admission and Anticipated Discharge Date Admission Date: April 05, 2024 Subjective Patient was seen and examined in room 355-2. F/U Lumbar D/F. She is c/o of incisional pain today. She had a rough night in regards to pain. She denies f/c/s, chest pain, sob, n/v/d. + Flatus. She didn't eat much for breakfast. at bedside. Review of Systems Review of Systems: All systems reviewed & are unremarkable except as noted in HPI & below Physical Exam Physical Exam: Gen: WD/WN, F, sitting in bed, NAD, A&O x3 HEENT: Normocephalic, atraumatic, conjunctivae moist, sclerae anicteric, mucous membranes moist. Lung: Clear to Auscultation bilaterally, no wheezes/rales/rhonchi Heart: Regular rate, regular rhythm, no murmurs, rubs, or gallops Abdomen: Soft, NT, ND +BS x 4 Extremities: No edema Skin: Warm, no rash, negative turgor. Results & Data Results & Data Vital Signs (Past 12 Hours) Vital Signs Temp Pulse Resp BP Pulse Ox O2 Del Method 04/06/24 08:15 Room Air 04/06/24 07:15 36.6 C 71 16 98/58 L 94 Room Air 04/06/24 04:00 36.7 C 64 15 103/58 L 96 Room Air Laboratory Results Short CBC 04/06/24 Range/Units 05:38 WBC 12.38 H (4.8-10.8) K/ul Hgb 11.3 L (12.0-16.0) g/dl Hct 34.2 L (37.0-47.0) % Plt Count 355 (130-400) K/uL BMP 04/06/24 05:38 Sodium 139 Potassium 4.2 Chloride 106 Carbon Dioxide 27 BUN 14 Creatinine 0.72 Glucose 91 Calcium 8.6 I have independently reviewed and interpreted patient's admitting labs including CBC, BMP. Medications Administered Current Inpatient Medications Acetaminophen (Acetaminophen 500 Mg Tab) 1,000 mg PO Q8H PRN PRN Reason: MILD Pain Scale 1,2,3 & Pre PT Stop: 05/05/24 15:14 Last Admin: 04/06/24 09:10 Dose: 1,000 mg Al Hydrox/Mg Hydrox/Simethicone (Aluminum/Magnesium Susp 30 Ml Udc) 30 ml PO Q6H PRN PRN Reason: Dyspepsia Stop: 05/05/24 15:14 Alprazolam (Alprazolam 0.25 Mg Tablet) 0.25 mg PO HS PRN PRN Reason: Sleep Stop: 05/05/24 15:14 Aspirin (Aspirin 81 Mg Ectab) 81 mg PO QAM [facility] Stop: 05/06/24 08:59 Last Admin: 04/06/24 09:34 Dose: 81 mg Atorvastatin Calcium (Atorvastatin 10 Mg Tab) 10 mg PO QDD [facility] Stop: 05/05/24 16:29 Last Admin: 04/05/24 17:15 Dose: 10 mg Bisacodyl (Bisacodyl 10 Mg Supp) [address] DAILY PRN PRN Reason: Constipation Stop: 05/05/24 15:14 Citalopram Hydrobromide (Citalopram 20 Mg Tab) 10 mg PO [facility] Stop: 05/06/24 08:59 Last Admin: 04/06/24 09:35 Dose: 10 mg Diphenhydramine HCl (Diphenhydramine Capsule 25 Mg Cap) 25 mg PO Q6H PRN PRN Reason: Allergic Rhinitis/Insomnia Stop: 05/05/24 15:14 Famotidine (Famotidine 20 Mg Tab) 20 mg PO Q12H PRN PRN Reason: Dyspepsia Stop: 05/05/24 15:14 Hydromorphone HCl (Hydromorphone Inj 0.5 Mg/0.5 Ml Syr) 0.5 mg IV Q3H PRN PRN Reason: MODERATE Pain (Scale 4,5,6) & Pre PT Stop: 04/19/24 15:14 Hydromorphone HCl (Hydromorphone Inj 1 Mg/Ml Syringe) 1 mg IV Q3H PRN PRN Reason: SEVERE Pain (Scale 7,8,9,10) Stop: 04/19/24 15:14 Last Admin: 04/06/24 05:49 Dose: 1 mg Hydroxyzine HCl (Hydroxyzine Hcl 25 Mg Tab) 25 mg PO Q8H PRN PRN Reason: Anxiety Stop: 05/05/24 15:14 Acetaminophen (Ofirmev) 1,000 mg in 100 mls @ 400 mls/hr IV Q8H PRN PRN Reason: Pain Rating 1-3 & Pre PT Stop: 04/06/24 15:15 Promethazine HCl (Phenergan) 12.5 mg in 50.5 mls @ 202 mls/hr IV Q6H PRN PRN Reason: Nausea And Vomiting Stop: 05/05/24 15:14 Dexamethasone 6 mg/ Syringe 1.5 mls @ 1 mls/min IV DAILY [facility] Stop: 04/08/24 09:02 Last Admin: 04/06/24 09:10 Dose: 1 mls/min Influenza Virus Vaccine Quadrival (Do Not Administer Flu Vaccine) 1 each N/A PRN PRN PRN Reason: Notification Stop: 05/05/24 15:14 Levothyroxine Sodium (Levothyroxine Sodium 75 Mcg Tablet) 75 mcg PO [id number]@0630 [facility] Stop: 05/06/24 06:29 Last Admin: 04/06/24 05:50 Dose: 75 mcg Levothyroxine Sodium (Levothyroxine Sodium 75 Mcg Tablet) 150 mcg PO Sa@0630 [facility] Stop: 05/10/24 06:29 Lorazepam (Lorazepam 0.5 Mg Tab) 0.5 mg PO Q8H PRN PRN Reason: Sedation/Anxiety Stop: 05/05/24 15:14 Lorazepam (Lorazepam 2 Mg/1 Ml Vial) 0.5 mg IV Q8H PRN PRN Reason: SEDATION/ANXIETY Stop: 05/06/24 12:51 Magnesium Hydroxide (Magnesium Hydroxide Susp 30 Ml Udc) 30 ml PO Q24H PRN PRN Reason: Constipation Stop: 05/05/24 15:14 Metoclopramide HCl (Metoclopramide Hcl Inj 5 Mg/Ml 2 Ml Vial) 10 mg IV Q6H PRN PRN Reason: Nausea &/or Vomiting Stop: 05/05/24 15:14 Metoprolol Succinate (Metoprolol Succ 25mg Ext Rel Tab) 25 mg PO QPM [facility] Stop: 05/05/24 20:59 Last Admin: 04/05/24 20:21 Dose: Not Given Multivitamins (Multivitamin Tab) 1 tab PO QAM [facility] Stop: 05/06/24 08:59 Last Admin: 04/06/24 09:34 Dose: 1 tab Naloxone HCl (Naloxone Hcl 0.4 Mg/1 Ml Vial/Carp) 0.1 mg IV Q5M PRN PRN Reason: Oversedation/Resp depression Stop: 05/05/24 15:14 Ondansetron HCl (Ondansetron Inj 2 Mg/Ml 2 Ml Vial) 4 mg IV Q6H PRN PRN Reason: Nausea &/or Vomiting Stop: 05/05/24 15:14 Ondansetron HCl (Ondansetron 4 Mg Od Tab) 4 mg PO Q6H PRN PRN Reason: Nausea Stop: 05/05/24 15:14 Oxycodone HCl (Oxycodone Hcl Ir 5 Mg Tab (Immediate Release)) 5 - 10 mg PO Q4H PRN PRN Reason: Pain & Pre PT Stop: 04/19/24 15:14 Last Admin: 04/06/24 09:10 Dose: 10 mg Pneumococcal Polyvalent Vaccine (Do Not Administer Pneumococcal Vaccine) 1 each N/A PRN PRN PRN Reason: Notification Stop: 05/05/24 15:14 Polyethylene Glycol (Polyethylene (Miralax) 17 Gm Pack) 17 gm PO Q6 ANGEL Stop: 05/06/24 05:59 Last Admin: 04/06/24 13:51 Dose: 17 gm Senna/Docusate Sodium (Docusate Sodium/Senna 50/8.6mg Tab) 2 tab PO HS ANGEL Stop: 05/05/24 20:59 Last Admin: 04/05/24 20:21 Dose: 2 tab Sodium Biphosphate/Sodium Phosphate (Sod Phosphate/Sod Biphosphate Enema 132 Ml Btl) [address] ONE PRN PRN Reason: Constipation Stop: 05/05/24 15:14 Tramadol HCl (Tramadol Hcl 50 Mg Tablet) 50 - 100 mg PO Q4H PRN PRN Reason: Moderate-Severe pain & Pre PT Stop: 05/05/24 15:14 Last Admin: 04/05/24 20:23 Dose: 100 mg Vitamin D (Cholecalciferol 25 Mcg (1000 Units) Tab) 50 mcg PO DAILY ANGEL Stop: 05/06/24 08:59 Last Admin: 04/06/24 09:34 Dose: 50 mcg
[2024-04-07 08:14] LABS: Basophils # (auto) 0.03 K/uL (0.00-0.20); Basophils % (auto) 0.3 %; Eosinophils # (auto) 0.02 K/uL (0.00-0.50); Eosinophils % (auto) 0.2 %; Hematocrit (blood only) 35.3 % (37.0-47.0); Hemoglobin 11.9 g/dl (12.0-16.0); Immature Granulocytes # (auto) 0.03 K/uL (0.01-0.20); Immature Granulocytes % (auto) 0.3 %; Lymphocytes % (auto) 26.9 %; Mean Corpuscular Hemoglobin 28.2 pg (25.0-34.0); Mean Corpuscular Hgb Conc 33.7 g/dL (32.0-36.0); Mean Corpuscular Volume 83.6 fL (80.0-100.0); Mean Platelet Volume 9.4 fL (9.4-12.4); Monocytes # (auto) 1.05 K/uL (0.11-0.59); Monocytes % (auto) 9.7 %; Neutrophils # (auto) 6.75 K/uL (1.40-6.50); Neutrophils % (auto) 62.6 %; Platelet Count 397 K/uL (130-400); RDW Coefficient of Variation 13.2 % (11.5-14.5); RDW Standard Deviation 40.1 fL (36.4-46.3); Red Blood Count 4.22 M/uL (4.20-5.40); White Blood Count 10.78 K/ul (4.8-10.8)
[2024-04-07 09:04] LABS: BUN Creatinine Ratio 13.9 (10-20); Calcium 9.1 mg/dl (8.6-10.3); Creatinine Clr Calc Pharmacy 60.3 ml/min; Est GFR (African American) 86.7 ml/min; Est GFR (Non-African American) 74.8 ml/min
--- NOTE | 2024-04-07 10:02 | Orthopedic Progress Note ---
Date of Service April 07, 2024 Assessment & Plan (1) Neurogenic claudication due to lumbar spinal stenosis: Plan: This time continue physical therapy monitor her STEPHANIE output anticipate discharge home tomorrow. Admission and Anticipated Discharge Date Admission Date: April 05, 2024 Subjective Patient's back pain is controlled leg pain markedly improved Physical Exam Physical Exam: Patient is constricted testing. Appears comfortable. Results & Data Vital Signs (Past 12 Hours) Vital Signs Temp Pulse Resp BP Pulse Ox O2 Del Method 04/07/24 08:04 36.8 C 76 19 122/70 97 Room Air
--- NOTE | 2024-04-07 13:32 | Hospitalist Progress Note ---
Date of Service April 07, 2024 Assessment & Plan (1) Neurogenic claudication due to lumbar spinal stenosis: (2) S/P lumbar spine operation: Plan Kristen Metz is a 73y/o F with PMHx of HTN, hyperlipidemia, hypothyroidism, depression, osteopenia, history of PVCs, DAWOOD on CPAP and other problems listed below [facility] after undergoing L3-L5 decompression and fusion performed by Dr. Wolf on 04/05/24. Neurogenic Claudication 2/2 Lumbar Spinal Stenosis S/P Lumbar Spine Operation POD#1 s/p L3-L5 decompression and fusion with Dr. Wolf. EBL: 150mL & Pre-Op Hgb: 13.5 [03/22/24] Per ortho for pain control, wound care, anticoagulation and activities. Continue incentive spirometry, PT/OT when appropriate as per ortho team. Monitor H/H for acute blood loss anemia and transfuse blood products PRN. Acute blood loss anemia, post operative, expected surgical blood loss/dilutional hgb 13.5 pre op, pod #2 was 11.9 follow cbc HTN: BP has been stable post-operatively. Can continue metoprolol succinate w/ hold parameters, monitor BP. Hyperlipidemia: Continue ASA and atorvastatin. Other Chronic Medical Conditions: Depression, hypothyroidism --> Can continue home meds for these specific conditions. DVT Prophylaxis: SCDs/TEDs as per primary care team. Code Status: FULL CODE PCP: Kenan Funk MD Disposition: Admitted in Med/Surg currently - discharge planning as per primary care team. Thank you for this consultation. We will follow the patient with you during their hospital stay. You can reach a [facility] of [facility] via [employer]. I spent a total of 44 minutes coordinating, documenting, and providing care for this patient excluding time spent in the performance of separately billed services. This included personally reviewing all current laboratories and imaging studies, medical reconciliation, outpatient chart review and discussion with specialists. Admission and Anticipated Discharge Date Admission Date: April 05, 2024 Supervising Physician Co-Signing Physician Notes Attending addendum: The patient was seen and examined in medical floor She has been feeling much better following the lumbar procedure Has been getting physical therapy and pain is controlled Denies any other significant symptoms On examination Remains hemodynamically stable Unremarkable physical examination Her labs, medication and imaging studies reviewed Status post L3-L5 decompression and fusion Remains clinically stable with other medical conditions as mentioned above Agree with Laureen Reyes PA-C and take the full responsibility of patient care Total time spent in documentation and examination was [address] Eliu Ferguson Subjective Patient was seen and examined in room 355-2. F/U Lumbar D/F. She is feeling better today. She slept better last night. She denies f/c/s, chest pain, sob, n/v/d. She has not yet moved her bowels and is requesting prn enema for later tonight if she still hasn't gone. Therapy is going well but she is stiff. is at beside who helps elicit history Review of Systems Review of Systems: All systems reviewed & are unremarkable except as noted in HPI & below Physical Exam Physical Exam: Gen: WD/WN, F, sitting in bed, NAD, A&O x3 HEENT: Normocephalic, atraumatic, conjunctivae moist, sclerae anicteric, mucous membranes moist. Lung: Clear to Auscultation bilaterally, no wheezes/rales/rhonchi Heart: Regular rate, regular rhythm, no murmurs, rubs, or gallops Abdomen: Soft, NT, ND +BS x 4 Extremities: No edema, lumbar dressing CDI with doreen drain with serosang drainage Skin: Warm, no rash, negative turgor. Results & Data Results & Data Vital Signs (Past 12 Hours) Vital Signs Temp Pulse Resp BP Pulse Ox O2 Del Method 04/07/24 11:51 36.4 C L 71 18 126/78 94 Room Air 04/07/24 08:04 36.8 C 76 19 122/70 97 Room Air Laboratory Results I have independently reviewed and interpreted patient's labs cbc, bmp Medications Administered Current Inpatient Medications Acetaminophen (Acetaminophen 500 Mg Tab) 1,000 mg PO Q8H PRN PRN Reason: MILD Pain Scale 1,2,3 & Pre PT Stop: 05/05/24 15:14 Last Admin: 04/07/24 09:14 Dose: 1,000 mg Al Hydrox/Mg Hydrox/Simethicone (Aluminum/Magnesium Susp 30 Ml Udc) 30 ml PO Q6H PRN PRN Reason: Dyspepsia Stop: 05/05/24 15:14 Alprazolam (Alprazolam 0.25 Mg Tablet) 0.25 mg PO HS PRN PRN Reason: Sleep Stop: 05/05/24 15:14 Aspirin (Aspirin 81 Mg Ectab) [address] [facility] Stop: 05/06/24 08:59 Last Admin: 04/07/24 08:56 Dose: 81 mg Atorvastatin Calcium (Atorvastatin 10 Mg Tab) [address] [facility] Stop: 05/05/24 16:29 Last Admin: 04/06/24 16:24 Dose: 10 mg Bisacodyl (Bisacodyl 10 Mg Supp) 10 mg [place] DAILY PRN PRN Reason: Constipation Stop: 05/05/24 15:14 Citalopram Hydrobromide (Citalopram 20 Mg Tab) [address] [facility] Stop: 05/06/24 08:59 Last Admin: 04/07/24 08:55 Dose: 10 mg Diphenhydramine HCl (Diphenhydramine Capsule 25 Mg Cap) 25 mg PO Q6H PRN PRN Reason: Allergic Rhinitis/Insomnia Stop: 05/05/24 15:14 Famotidine (Famotidine 20 Mg Tab) 20 mg PO Q12H PRN PRN Reason: Dyspepsia Stop: 05/05/24 15:14 Hydromorphone HCl (Hydromorphone Inj 0.5 Mg/0.5 Ml Syr) 0.5 mg IV Q3H PRN PRN Reason: MODERATE Pain (Scale 4,5,6) & Pre PT Stop: 04/19/24 15:14 Hydromorphone HCl (Hydromorphone Inj 1 Mg/Ml Syringe) 1 mg IV Q3H PRN PRN Reason: SEVERE Pain (Scale 7,8,9,10) Stop: 04/19/24 15:14 Last Admin: 04/06/24 22:26 Dose: 1 mg Hydroxyzine HCl (Hydroxyzine Hcl 25 Mg Tab) 25 mg PO Q8H PRN PRN Reason: Anxiety Stop: 05/05/24 15:14 Promethazine HCl (Phenergan) 12.5 mg in 50.5 mls @ 202 mls/hr IV Q6H PRN PRN Reason: Nausea And Vomiting Stop: 05/05/24 15:14 Dexamethasone 6 mg/ Syringe 1.5 mls @ 1 mls/min IV DAILY [facility] Stop: 04/08/24 09:02 Last Admin: 04/07/24 08:56 Dose: 1 mls/min Influenza Virus Vaccine Quadrival (Do Not Administer Flu Vaccine) 1 each N/A PRN PRN PRN Reason: Notification Stop: 05/05/24 15:14 Levothyroxine Sodium (Levothyroxine Sodium 75 Mcg Tablet) 75 mcg PO [id number]@0630 [facility] Stop: 05/06/24 06:29 Last Admin: 04/07/24 06:15 Dose: 75 mcg Levothyroxine Sodium (Levothyroxine Sodium 75 Mcg Tablet) 150 mcg PO Sa@0630 [facility] Stop: 05/10/24 06:29 Lorazepam (Lorazepam 0.5 Mg Tab) 0.5 mg PO Q8H PRN PRN Reason: Sedation/Anxiety Stop: 05/05/24 15:14 Lorazepam (Lorazepam 2 Mg/1 Ml Vial) 0.5 mg IV Q8H PRN PRN Reason: SEDATION/ANXIETY Stop: 05/06/24 12:51 Magnesium Hydroxide (Magnesium Hydroxide Susp 30 Ml Udc) 30 ml PO Q24H PRN PRN Reason: Constipation Stop: 05/05/24 15:14 Metoclopramide HCl (Metoclopramide Hcl Inj 5 Mg/Ml 2 Ml Vial) 10 mg IV Q6H PRN PRN Reason: Nausea &/or Vomiting Stop: 05/05/24 15:14 Metoprolol Succinate (Metoprolol Succ 25mg Ext Rel Tab) [address] [facility] Stop: 05/05/24 20:59 Last Admin: 04/06/24 19:56 Dose: Not Given Multivitamins (Multivitamin Tab) [address] [facility] Stop: 05/06/24 08:59 Last Admin: 04/07/24 08:55 Dose: 1 tab Naloxone HCl (Naloxone Hcl 0.4 Mg/1 Ml Vial/Carp) 0.1 mg IV Q5M PRN PRN Reason: Oversedation/Resp depression Stop: 05/05/24 15:14 Ondansetron HCl (Ondansetron Inj 2 Mg/Ml 2 Ml Vial) 4 mg IV Q6H PRN PRN Reason: Nausea &/or Vomiting Stop: 05/05/24 15:14 Ondansetron HCl (Ondansetron 4 Mg Od Tab) 4 mg PO Q6H PRN PRN Reason: Nausea Stop: 05/05/24 15:14 Oxycodone HCl (Oxycodone Hcl Ir 5 Mg Tab (Immediate Release)) 5 - 10 mg PO Q4H PRN PRN Reason: Pain & Pre PT Stop: 04/19/24 15:14 Last Admin: 04/07/24 09:14 Dose: 10 mg Pneumococcal Polyvalent Vaccine (Do Not Administer Pneumococcal Vaccine) 1 each N/A PRN PRN PRN Reason: Notification Stop: 05/05/24 15:14 Polyethylene Glycol (Polyethylene (Miralax) 17 Gm Pack) 17 gm PO Q6 ANGEL Stop: 05/06/24 05:59 Last Admin: 04/07/24 12:50 Dose: 17 gm Senna/Docusate Sodium (Docusate Sodium/Senna 50/8.6mg Tab) 2 tab PO HS ANGEL Stop: 05/05/24 20:59 Last Admin: 04/06/24 19:56 Dose: 2 tab Sodium Biphosphate/Sodium Phosphate (Sod Phosphate/Sod Biphosphate Enema 132 Ml Btl) 132 ml [place] ONE PRN PRN Reason: Constipation Stop: 05/05/24 15:14 Tramadol HCl (Tramadol Hcl 50 Mg Tablet) 50 - 100 mg PO Q4H PRN PRN Reason: Moderate-Severe pain & Pre PT Stop: 05/05/24 15:14 Last Admin: 04/05/24 20:23 Dose: 100 mg Vitamin D (Cholecalciferol 25 Mcg (1000 Units) Tab) 50 mcg PO DAILY ANGEL Stop: 05/06/24 08:59 Last Admin: 04/07/24 08:55 Dose: 50 mcg
[2024-04-07] MEDS: bisacodyL 10 MG SUPP PR PRN (18:24)
--- NOTE | 2024-04-08 08:03 | Hospitalist Progress Note ---
Date of Service April 08, 2024 Assessment & Plan (1) Neurogenic claudication due to lumbar spinal stenosis: (2) S/P lumbar spine operation: Dixon Metz is a 73y/o F with PMHx of HTN, hyperlipidemia, hypothyroidism, depression, osteopenia, history of PVCs, DAWOOD on CPAP and other problems listed below [facility] after undergoing L3-L5 decompression and fusion performed by Dr. Wolf on 04/05/24. Neurogenic Claudication 2/2 Lumbar Spinal Stenosis S/P Lumbar Spine Operation POD#3 s/p L3-L5 decompression and fusion with Dr. Wolf. EBL: 150mL & Pre-Op Hgb: 13.5 [03/22/24] Per ortho for pain control, wound care, anticoagulation and activities. Continue incentive spirometry, PT/OT when appropriate as per ortho team. Monitor H/H for acute blood loss anemia and transfuse blood products PRN. Plan for DC today per admitting team Acute blood loss anemia, post operative, expected surgical blood loss/dilutional hgb 13.5 pre op, pod #2 was 11.9 no active overt signs of bleeding from STEPHANIE drain; removing today HTN: BP has been stable post-operatively. Can continue metoprolol succinate w/ hold parameters, monitor BP. Hyperlipidemia: Continue ASA and atorvastatin. Other Chronic Medical Conditions: Depression, hypothyroidism --> Can continue home meds for these specific conditions. Disposition: DVT Prophylaxis: SCDs/TEDs as per primary care team. Code Status: FULL CODE PCP: Kenan Funk MD Admitted in Med/Surg currently - discharge planning as per primary care team. Thank you for this consultation. We will follow the patient with you during their hospital stay. You [facility] via [employer]. I spent a total of 42 minutes coordinating, documenting, and providing care for this patient excluding time spent in the performance of separately billed serv ices. This included personally reviewing all current laboratories and imaging studies, medical reconciliation, outpatient chart review and discussion with specialists. Admission and Anticipated Discharge Date Admission Date: April 05, 2024 Supervising Physician Co-Signing Physician Notes Attending addendum: The patient was seen and examined in medical floor She has been feeling much better and awaiting to be discharged Denies any significant symptoms On examination Lying in bed without any acute distress Hemodynamically stable Physical examination remain unremarkable otherwise Her labs and medications reviewed Status post lumbar decompression fusion remains medically stable Agree with assessment and plan as outlined above by Gaviota CUADRA and take full responsibility of the patient care in the hospital Dr Eliu Ferguson Subjective Patient was seen and examined in room 355-2 s/p D/F under the care of Dr. Wolf. She was sitting in her bedside hospital chair had a good night last night and was able to sleep better. She had started passing flatulance yesterday and had a small BM this morning. She is eager to go home. 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 Will closely monitor her bowel regimen at home with senakot and Metamucil. She denies fever, chills, chest pain, SOB. She will follow up with Dr. Wolf in one week and will arrange a f/u with her P CP. Review of Systems Review of Systems: Neuro: (-) Falls, trauma, slurred speech HEENT: (-) DUNN, dizziness, dysphagia, visual or auditory changes CV: (-) CP, palpitations, swelling Resp: (-) SOB GI: (-) appetite changes, N/V/D, bowel changes : (-) urinary changes Skin: (-) rashes Psych: (-) anxiety, depression Physical Exam Physical Exam: Neuro: AAOx4, PERRLA, no aphagia, memory changes, CNII-XII grossly intact HEENT: head normocephalic, moist mucus membranes CV: S1/S2, (-) M/G/R, (-) edema, cap refill < 3 seconds. STEPHANIE drain x1 serous sanguinous drainage; will be removed prior to DC Resp: Lungs CTA in all batista. On RA GI: Abdomen S/NT/ND, Ax4 bowel sounds, (-) CVA tenderness Musculoskeletal: 5/5 B/L UE strength, 5/5 B/L LE strength. No gait disturbance; uses a walker post op Skin: (-) rashes , (-) erythema. Psych: euthymic mood Results & Data Results & Data Vital Signs (Past 12 Hours) Vital Signs Temp Pulse Resp BP Pulse Ox O2 Del Method 04/08/24 07:43 36.7 C 66 16 138/80 97 Room Air Laboratory Results Short CBC 04/07/24 Range/Units 07:50 WBC 10.78 (4.8-10.8) K/ul Hgb 11.9 L (12.0-16.0) g/dl Hct 35.3 L (37.0-47.0) % Plt Count 397 (130-400) K/uL BMP 04/07/24 07:50 Sodium 141 Potassium 4.0 Chloride 105 Carbon Dioxide 31 BUN 11 Creatinine 0.79 Glucose 88 Calcium 9.1
--- NOTE | 2024-04-08 08:16 | Discharge Summary ---
Date of Service April 08, 2024 Admission HPI Per Admitting Provider 73-year-old female who presents with chronic persistent back and leg pain after failing course of nonoperative care is here for surgical intervention. Principal Diagnosis Lumbar spinal stenosis with neurogenic claudication Discharge Data Allergies Allergy/AdvReac Type Severity Reaction Status Date / Time No Known Allergies Allergy Verified 04/05/24 10:25 Consultations 04/05/24 15:15 Consult Hospitalist Routine Procedures Performed Operation Date: 04/05/24 11:25 Actual Procedures p L3-L5 Decompression and Fusion, Spinal Cord Monitoring(Not Applicable) - Feliciano Wolf DO Ordered Studies 04/05/24 11:25 FL lumbar spine 2-3V Routine Hospital Course (1) Neurogenic claudication due to lumbar spinal stenosis: Patient aware limiting motion patient tolerated this well was taken to orthopedic for possibly. Postoperative she progressed appropriate. Drain decreasing. Instructed testing. Subsidy discharged home. Discharge order instructions from the chart for further review. Total Time Total Time Spent Total Time Spent (In Minutes): 20 minutes Discharge Plan Discharge Items Patient Disposition: Home - Self-Care Reason For Visit: Spinal Stenosis Lumbar Region Neurogenic Caludicat Discharge Diagnosis: Lumbar spinal stenosis with neurogenic claudication Activity: As commented below Non-emergency contact: Primary Care Provider Call non-emergency contact if: you have any medication questions Follow-up/Referrals: Kenan Funk [Primary Care Provider] - Diet: Regular Addtl Attending Provider Instructions: ACTIVITY RECOMMENDATIONS: SELF CARE INSTRUCTIONS AFTER THORACIC/LUMBAR FUSIONS 1. You may walk to your tolerance. It is good exercise for your legs and back. Expect some back and intermittent leg aches and pains. 2. You may perform "counter-top" level activities (make a sandwich, meliton with a project, etc.). 3. No bending or lifting of more than 10 pounds or back twisting of any nature (roll like a log when turning in bed). 4. You may ride in a car for 20-30 minutes at a time. No driving until after your first visit with your doctor. 5. Frequent changes of position and restricting sitting to 30 minutes at a time will help limit the amount of back spasms and stiffness you may experience. 6. You may discontinue the use of ambulatory aids (cane, crutches, etc.) once your strength and confidence allow. 7. You may switch engineer the shower and let water strike your incision when you arrive home at least once daily. Do not take a tub bath, sit in a hot tub or go into a swimming pool until after your first recheck in the office. SPECIAL CARE INSTRUCTIONS: VERY IMPORTANT TO READ AND REVIEW A. Your surgical incision has been closed with a cosmetic suture under the skin that will dissolve in about 6 weeks. In 14 days, you can use a pair of clean scissors and cut the suture that is left outside of the skin at the ends of your incision. 1. The small skin tapes can be removed 7 days after surgery if they have not fallen off by that point. 2. You may keep the wound open to air as much as possible to promote healing after post-op day number 5 unless told otherwise by your doctor. 3. If you think the wound looks like it is becoming infected (redness or worsening drainage) and/or you are experiencing fever, chill or worsening back pain and muscle spasms, contact the office so that we may evaluate you as soon as possible. B. Complications are uncommon, but please contact us if you have any signs or symptoms of: 1. wound infection (fever higher than 102.5 degrees F, redness, separation of wound, drainage, or increasing pain from the incision) 2. blood clots in legs (pain, swelling, redness and warmth in legs) 3. urinary tract infection (fever higher than 102.5 degrees F, burning upon urination or increased frequency of urination) 4. nerve problems (inability to walk on your toes or heels, numbness, loss of bowel or bladder control) 5. any other symptoms that concern you C. Please call the office at if you have any concerns or questions about your operation or recovery. D. No smoking! Smoking drastically decreases the chance of a solid fusion. E. Do not take any anti-inflammatory medications (Indocin, Advil, Motrin, Aspirin, Naprosyn, etc.) as these may inhibit the chance of a solid fusion. Tylenol is okay to take for pain. MANAGING PAIN AFTER SPINAL SURGERY 1. Narcotic medication is intended for short-term use and will be provided for surgical pain. Surgical pain usually lasts for a period of 4-6 weeks. Narcotic medication includes Percocet, Vicodin, Darvocet, Tylenol #3 or Lortab. 2. Longer-term pain is more appropriately treated with non-narcotic medication such as Tylenol ES. 3. Muscle spasm is not appropriately treated with narcotics. Muscle relaxers such as Soma, Flexeril or Skelaxin can be used along with Tylenol ES. 4. Remember that we all live with some "aches and pains". This is not unusual or uncommon after an injury or as we get older. a. Back pain is expected and may include muscle spasms for 4 to 6 weeks after surgery. The pain should gradually improve. If the pain worsens for no apparent reason, please contact the office. b. Intermittent leg pain may also be experienced and should not be concerned about unless it worsens for no apparent reason. If so, please contact the office. 5. We will provide appropriate medication within the normal guidelines of their prescribed use. We will also be very cautious and aware of potential abuse and extended duration of patients' medication needs. a. Pain medications are for your comfort and to assist with sleep and rest so that the tissue can heal. They are not provided in order to return to normal activity and should not be used through the day. To do so or worsening pain at night can result from ongoing tissue damage and development of tolerance to the prescribed medicine. 6. Please allow 2-3 days to process refills. Prescriptions will not be mailed but must be picked up at the office. FOLLOW UP VISIT: Keep your scheduled follow-up appointment. Any questions, please call the office at . Pending Studies at Discharge: No Stand-Alone Forms: My [facility] [employer], Smoking Cessation Medications and SC Order Prescriptions: New oxycodone 5 mg tablet 5 mg PO Q6H PRN (Reason: pain) Qty: 30 0RF Continued celecoxib [Celebrex] 200 mg Capsule 200 mg PO QAM atorvastatin 10 mg Tablet 10 mg PO QDD citalopram [Celexa] 10 mg Tablet 10 mg PO QAM levothyroxine 75 mcg Tablet 75 - 150 mcg PO UD Patient Comments: 75 mcg daily except on Tuedays take 150 mcg. Morning hours. aspirin 81 mg Tablet 81 mg PO QAM metoprolol succinate 25 mg Tablet Extended Release 24 Hr 25 mg PO QPM lysine [L-Lysine] 1,000 mg Tablet 1,000 mg PO QAM tramadol 50 mg Tablet 25 mg PO UD PRN (Reason: Pain) acetaminophen [Tylenol Extra Strength] 500 mg Tablet 500 - 1,000 mg PO UD PRN (Reason: Pain) alprazolam [Xanax] 0.5 mg Tablet 0.25 mg PO HS PRN (Reason: Sleep) [id number] Tablet 1 tab PO QAM Sleep Aid (doxylamine) 25 mg Tablet 12.5 - 25 mg PO HS PRN (Reason: Sleep) multivitamin with iron Tablet 1 tab PO QAM coenzyme Q10 [CoQ-10] 100 mg Capsule 100 mg PO QAM glucosamine-chondroitin [Osteo Bi-Flex] 250-200 mg Tablet 2 tab PO QAM cholecalciferol (vitamin D3) [Vitamin D3] 50 mcg (2,000 unit) Capsule 50 mcg PO UD Patient Comments: not every day in the summer vitamin K2 100 mcg Capsule 100 mcg PO QAM biotin 5,000 mcg Tablet,Chewable 5,000 mcg PO QAM Patient Comments: swallow form Fish And Flax Oil 1 cap PO QAM Discharge Orders: Discharge Order (Routine); Ordered 04/08/24 Ordered By: Feliciano Wolf Admission Data Admit Date/Time: 04/05/24 14:21 Attending Provider: Feliciano Wolf Admit Provider: Feliciano Wolf Primary Care Provider: Kenan Funk Other Providers: Melinda Phillip; Jorge Chandler; Obed Ferguson
[2024-04-10] MEDS ORDERED: LEVOTHYROXINE SODIUM 75 MCG TABLET PO SCH (06:30)
== END 2024-04-08 11:25 | disposition home or self-care (01) | DRG 454 ==
LOC: ASU 09:45 → 3W 14:21